=== PATIENT | male | born 2000 | race Caucasian/White ===

== ENCOUNTER 2022-10-11 09:22 | Emergency (ER) | payer BC, SELFPAY ==
[2022-10-11 09:29] VITALS: BP 118/97; PULSE 129; RESP 18; TEMP 36.8; O2SAT 100
--- NOTE | 2022-10-11 09:48 | ED.LOWEXIN ---
HPI - Extremity Injury (Lower) General Chief Complaint: Extremity Injury, Lower Stated Complaint: Left Foot/ Toe Injury Time Seen by Provider: 10/11/22 09:48 History of Present Illness HPI Narrative: Patient presents with redness and swelling to his left great toe. Patient states has been like this for 2 weeks and is getting worse. No streaking no drainage. Related Data Allergies Allergy/AdvReac Type Severity Reaction Status Date / Time No Known Allergies Allergy Verified 10/11/22 09:45 Review of Systems Review of Systems: CONSTITUTIONAL: Denies fever, chills, or sweats. EYES: Denies visual changes, redness, or discharge. ENT: Denies rhinorrhea, congestion, sore throat, or otalgia. CARDIOVASCULAR: Denies chest pain, palpitations, or edema. RESPIRATORY: Denies cough or dyspnea. GASTROINTESTINAL: Denies abdominal pain, nausea, vomiting, or diarrhea. GENITOURINARY: Denies dysuria or hematuria. SKIN: Denies rash or itching. MUSCULOSKELETAL: Denies back pain, joint pain, or myalgia. NEUROLOGIC: Denies headache, numbness, or weakness. PSYCHIATRIC: Denies anxiety or depression. PMFSH Comments At time of signature, agree with nursing past medical, surgical, social and family history. There is no relevant family history pertinent to the presenting complaint Exam Narrative: GENERAL: Well-appearing, well-nourished, and in no acute distress. HEAD: Normocephalic, atraumatic. EYES: PERRLA and EOMI. ENT: Nares clear, no rhinorrhea or epistaxis. Mucous membranes moist. NECK: Supple. CHEST: Clear to auscultation. No respiratory distress. HEART: Regular rate and rhythm. No murmur heard. Normal peripheral pulses. ABDOMEN: Soft, nontender, nondistended, normal active bowel sounds. EXTREMITIES: Normal range of motion. No edema. Paronychia to left great toe no streaking no drainagesWELLING AND REDNESS AND FLUCTUANCE CONSISTENT WITH PARONYCHIA. NORMAL CAP REFILL. NORMAL SENSATION OF DISTAL TOE. NORMAL 2 POINT DISCRIMINATION. NORMAL MOVEMENT OF TOE AT PIP, DIP, MCP. NORMAL FOOT EXAM. NO STREAKING OR REDNESS INTO FOOT SKIN: Warm, dry, no rash. NEURO: No focal deficits. Alert and oriented x3. [place] Coma Scale Eye Opening: Spontaneous 4 [place] Coma Scale Motor: Obeys Commands 6 [place] Coma Scale Verbal: Oriented 5 [place] Coma Scale Total 15 Course Course Level of Care: Express Care Visit Vital Signs Vital signs: Vital Signs Temperature 36.8 C 10/11/22 09:29 Pulse Rate 129 H 10/11/22 09:29 Respiratory Rate 18 10/11/22 09:29 Blood Pressure 118/97 H 10/11/22 09:29 Pulse Oximetry 100 10/11/22 09:29 Oxygen Delivery Room Air 10/11/22 09:29 Temperature 36.8 C 10/11/22 09:29 Pulse Rate 129 H 10/11/22 09:29 Respiratory Rate 18 10/11/22 09:29 Blood Pressure 118/97 H 10/11/22 09:29 Pulse Oximetry 100 10/11/22 09:29 Oxygen Delivery Room Air 10/11/22 09:29 Procedures Abscess I/D Paronychia to left great toe: Side (if applicable): left Amount of fluid expressed (mL): 15 Abcess I&D Additional Comments: 18. Gauge needle used to left great toe inserted after cleansing the area with Betadine inserted to right side of left great toe paronychia with 15 mL of purulent drainage removed. Bacitracin and Band-Aid applied Discharge Plan Discharge Clinical Impression: Paronychia of great toe Patient Disposition: Home, Self-Care Condition: Stable Instructions: Antibiotic Form, Paronychia (ED) Additional Instructions: Warm water and Epson salt soaks 2 to 3 times a day for 15-20 minutes for the next 5-7 days Take antibiotic as prescribed until gone Follow-up with PCP in 5-7 days If any new or worsening symptoms please go to ER immediately for further evaluation treatment Prescriptions: New cephalexin 500 mg capsule 500 mg PO Q8H 7 Days Qty: 21 0RF Follow-up/Referrals: PHYSICIAN NOT ON STAFF,NONSTAFF [Primary Care Provider] -
== END 2022-10-11 10:00 | disposition home or self-care (01) ==
PROVIDERS: Emergency Provider Nurse Practitioner Family
DX: L03.032 Cellulitis of left toe (principal)
CPT/HCPCS: 10060; 99203; G0463